=== PATIENT | male | born 1985 | race Caucasian/White ===

== ENCOUNTER 2021-09-07 06:07 | Emergency (ER) | payer OTHER, MEDICAID ==
[~2021-09-07] VITALS: Ht 177.8 cm; Wt 160.0 kg
[2021-09-07] MEDS ORDERED: LORazepam 2MG/ML-1ML VIAL IV ONE (07:15)
[2021-09-07] MEDS ORDERED: lamoTRIgine 100 MG TAB PO ONE (07:30)
[2021-09-07 09:33] VITALS: BP 112/63
[2021-09-07] MEDS ORDERED: CLON1TAB PO (10:53)
== END 2021-09-07 11:09 | disposition home or self-care (01) ==
LOC: ER 06:07 → EDBD 06:07 → ER 11:09
DX: G40.909 Epilepsy, unspecified, not intractable, without status epilepticus (principal); S06.890D Other specified intracranial injury without loss of consciousness, subsequent encounter; X58.XXXD Exposure to other specified factors, subsequent encounter
CPT/HCPCS: 93005